=== PATIENT | male | born 2000 | race Caucasian/White ===

== ENCOUNTER 2018-03-29 22:10 | Inpatient (IN) | payer BC ==
[2018-03-29] MEDS ORDERED: SODIUM CHLORIDE 1,000 ML IV STA (23:23)
--- NOTE | 2018-03-29 23:23 | PDOC ---
History of Present Illness - General Chief Complaint: Pain Stated Complaint: PCP SENT Time Seen by Provider: 03/29/18 23:19 History Source: Patient - History of Present Illness Initial Comments: 03/30/18 02:12 17-year-old male with right lower quadrant pain, nausea vomiting for one day. Patient was seen in [facility] urgent care, noted to have WBC count of 17,000 and was referred to the ER for further evaluation of right lower quadrant pain. Past History - Past Medical History Allergies/Adverse Reactions: Allergies Allergy/AdvReac Type Severity Reaction Status Date / Time No Known Allergies Allergy Verified 03/29/18 22:13 Home Medications: Ambulatory Orders NK [No Known Home Medication] 03/30/18 COPD: No - Immunization History Immunization Up to Date: Yes - Suicide/Smoking/Psychosocial Hx Smoking History: Never smoked Review of Systems - Review of Systems Able to Perform ROS?: Yes Is the patient limited Maltese proficient: No Constitutional: No: Symptoms Reported, See HPI, Chills, Diaphoresis, Fever, Loss of Appetite, Malaise, Night Sweats, Weakness, Weight Stable, Unintentional Wgt. Loss, Unexplained wgt Loss, Other ABD/GI: Yes: Nausea, Vomiting, Abdominal cramping. No: Symptoms Reported, See HPI, Abdominal Distended, Abd. Pain w/ defecation, Blood Streaked Bowels, Constipated, Diarrhea, Difficulty Swallowing, Poor Appetite, Poor Fluid Intake, Rectal Bleeding, Indigestion, Tarry Stools, Other : No: Symptoms Reported, See HPI, Burning, Dysuria, Discharge, Frequency, Flank Pain, Hematuria, Incontinence, Pain, Urgency, Testicular Mass, Testicular Swelling, Lesions, Testicular Pain, Other *Physical Exam - Vital Signs Last Vital Signs Temp Pulse Resp BP Pulse Ox 98.2 F 80 18 118/62 98 03/29/18 22:13 03/29/18 22:13 03/29/18 22:13 03/29/18 22:13 03/29/18 22:13 - Physical Exam General Appearance: Yes: Appropriately Dressed Gastrointestinal/Abdominal: positive: Normal Bowel Sounds, Tender (RLQ), Soft Male Genitalia: positive: normal genitalia, normal prostate. negative: testicular tenderness Musculoskeletal: positive: Normal Inspection. negative: CVA Tenderness Extremity: positive: Normal Capillary Refill, Normal Inspection, Normal Range of Motion Integumentary: positive: Normal Color, Dry, Warm Neurologic: positive: Fully Oriented, Alert, Normal Mood/Affect ED Treatment Course - LABORATORY CBC & Chemistry Diagram: 03/29/18 23:40 03/29/18 23:40 Progress Note - Progress Note Progress Note: Acute appendicitis Dr. Sinha is made aware. patient to be admitted under hospitalist for further management of care. Medical Decision Making - Medical Decision Making 03/30/18 03:[address] patient signed out to Dr[address] Resendez *DC/Admit/Observation/Transfer Diagnosis at time of Disposition: Abdominal pain Qualifiers: Abdominal location: right lower quadrant Qualified Code(s): R10.31 - Right lower quadrant pain Acute appendicitis Qualifiers: Acute appendicitis type: unspecified acute appendicitis type Qualified Code(s) : K35.80 - Unspecified acute appendicitis - Discharge Dispostion Decision to Admit order: Yes - Referrals - Patient Instructions - Post Discharge Activity
[2018-03-29] MEDS ORDERED: ONDANSETRON 4 MG/2 ML VIAL IVPUSH ONE (23:30)
[2018-03-29] MEDS ORDERED: ONDANSETRON 4 MG/2 ML VIAL ONE (23:40)
[2018-03-29 23:56] LABS: BASO % 0.3 % (0-2.0); EOS % 0.1 % (0-4.5); HEMATOCRIT 38.9 % (35.4-49); HEMOGLOBIN 12.8 GM/dL (11.7-16.9); LYMPH % 12.2 % (8-40); MCH 29.3 pg (25.7-33.7); MEAN CELL VOLUME 88.9 fl (80-96); MEAN PLT VOLUME 7.9 fl (7.5-11.1); MONO % 7.6 % (3.8-10.2); NEUT % 79.8 % (42.8-82.8); PLATELET COUNT 283 K/MM3 (134-434); RBC 4.38 M/mm3 (4.00-5.60); RDW 14.4 % (11.9-15.9); WHITE BLOOD COUNT 15.5 K/mm3 (4.0-10.0)
[2018-03-30 00:50] LABS: ALBUMIN 4.1 g/dl (3.4-5.0); ALK PHOS 80 U/L (45-117); ANION GAP 9 (8-16); BILIRUBIN,TOTAL 1.4 mg/dL (0.2-1.0); BLOOD UREA NITROGEN 20 mg/dL (7-18); CALCIUM 8.7 mg/dL (8.5-10.1); CHLORIDE 106 mmol/L (98-107); CO2 24 mmol/L (21-32); CREATININE 0.9 mg/dL (0.7-1.3); GLUCOSE,RANDOM 93 mg/dL (74-106); LIPASE 48 U/L (73-393); POTASSIUM 4.2 mmol/L (3.5-5.1); SGOT/AST 15 U/L (15-37); SGPT/ALT 21 U/L (12-78); SODIUM 139 mmol/L (136-145)
[2018-03-30 01:57] LABS: URINE APPEARANCE CLEAR; URINE BILIRUBIN NEGATIVE (<2.0 mg/dL); URINE COLOR COLORLESS; URINE GLUCOSE (UA) NEGATIVE (NEGATIVE); URINE KETONE TRACE (NEGATIVE); URINE LEUK ESTERASE NEGATIVE (NEGATIVE); URINE NITRITE NEGATIVE (NEGATIVE); URINE PROTEIN NEGATIVE (NEGATIVE); URINE UROBILINOGEN NEGATIVE mg/dL (0.2-1.0)
[2018-03-30] MEDS ORDERED: SODIUM CHLORIDE 1,000 ML IV SCH ×2 (02:30→04:30)
[2018-03-30] MEDS ORDERED: PIPERACILLIN/TAZOB 3.375 GM 3.375 GM in DEXTROSE 5%-WATER - 50 ML IVPB ONE ×2 (02:43→09:00)
[2018-03-30] MEDS ORDERED: PIPERACILLIN/TAZOB 3.375 GM 3.375 GM/50 ML BAG IVPB ONE ×2 (03:06→04:09)
--- NOTE | 2018-03-30 03:36 | HP ---
CHIEF COMPLAINT: abdominal pain PCP: none HISTORY OF PRESENT ILLNESS: 17 yr old man with no significant past medical history referred by [facility] urgent care center for wbc of 17,000 this evening. midday at school he had lunch, developed 4/10 nonpositional/nonradiating RLQ pain. He had 3-4 episodes of emesis consisting of food, abdominal pain improved after vomiting. He went home and continued to have the pain, his mom brought him to the urgent care center to be evaluated. He was in his usual state of health morning and Monday. denies fevers, hematochezia, chest pain, sob. ER course was notable for: (1)abd/pelvic CT with cont shows mildly inflammed/mildly dilated appendix (2) (3) Recent Travel:none PAST MEDICAL HISTORY: none PAST SURGICAL HISTORY: none Social History: came from [facility] 7yrs ago, plays soccer, in school Smoking: denies Alcohol:denies Drugs: denies Family History: mother denies family hx of HTN, DM, cancers Allergies No Known Allergies Allergy (Verified 03/29/18 22:13) HOME MEDICATIONS: Home Medications Medication Instructions Recorded NK [No Known Home Medication] 03/30/18 REVIEW OF SYSTEMS CONSTITUTIONAL: Absent: fever, chills, diaphoresis, generalized weakness, malaise, loss of appetite, weight change HEENT: Absent: rhinorrhea, nasal congestion, throat pain, throat swelling, difficulty swallowing, mouth swelling, ear pain, eye pain, visual changes CARDIOVASCULAR: Absent: chest pain, syncope, palpitations, irregular heart rate, lightheadedness , peripheral edema RESPIRATORY: Absent: cough, shortness of breath, dyspnea with exertion, orthopnea, wheezing, stridor, hemoptysis GASTROINTESTINAL: Present:abdominal pain, vomiting, Absent: , abdominal distension, nausea, diarrhea, constipation, melena, hematochezia GENITOURINARY: Absent: dysuria, frequency, urgency, hesitancy, hematuria, flank pain, genital pain MUSCULOSKELETAL: Absent: myalgia, arthralgia, joint swelling, back pain, neck pain SKIN: Absent: rash, itching, pallor HEMATOLOGIC/IMMUNOLOGIC: Absent: easy bleeding, easy bruising, lymphadenopathy, frequent infections ENDOCRINE: Absent: unexplained weight gain, unexplained weight loss, heat intolerance, cold intolerance NEUROLOGIC: Absent: headache, focal weakness or paresthesias, dizziness, unsteady gait, seizure, mental status changes, bladder or bowel incontinence PHYSICAL EXAMINATION Vital Signs - 24 hr 03/29/18 22:13 Temperature 98.2 F Pulse Rate 80 Respiratory 18 Rate Blood Pressure 118/62 O2 Sat by Pulse 98 Oximetry (%) GENERAL: Awake, alert, and fully oriented, in no acute distress. HEAD: Normal with no signs of trauma. EYES: Pupils equal, round and reactive to light, extraocular movements intact, sclera anicteric, conjunctiva clear. No lid lag. EARS, NOSE, THROAT: Ears normal, nares patent, oropharynx clear without exudates. Moist mucous membranes. NECK: Normal range of motion, supple without lymphadenopathy, JVD, or masses. LUNGS: Breath sounds equal, clear to auscultation bilaterally. No wheezes, and no crackles. No accessory muscle use. HEART: Regular rate and rhythm, normal S1 and S2 without murmur, rub or gallop. ABDOMEN: Soft, not distended, normoactive bowel sounds, no guarding, no rebound , no masses. No hepatomegaly or splenomegaly. tender to deep palpation in RLQ , no pereira's, no rovsings, no obturator's MUSCULOSKELETAL: Normal range of motion at all joints. No bony deformities or tenderness. No CVA tenderness. UPPER EXTREMITIES: 2+ radial pulses, warm, well-perfused. No cyanosis. No clubbing. No peripheral edema. LOWER EXTREMITIES: 2+ DP pulses, warm, well-perfused. No calf tenderness. No peripheral edema. NEUROLOGICAL: Cranial nerves II-XII intact. Normal speech. facial symmetry PSYCHIATRIC: Cooperative. Good eye contact. Appropriate mood and affect. SKIN: Warm, dry, normal turgor, no rashes or lesions noted, normal capillary refill. Laboratory Results - last 24 hr 03/29/18 03/29/18 03/30/18 23:40 23:40 00:43 WBC 15.5 H RBC 4.38 Hgb 12.8 Hct 38.9 MCV 88.9 MCH 29.3 MCHC 33.0 RDW 14.4 Plt Count 283 MPV 7.9 Neutrophils % 79.8 Lymphocytes % 12.2 Monocytes % 7.6 Eosinophils % 0.1 Basophils % 0.3 Nucleated RBC % 0 Sodium 139 Potassium 4.2 Chloride 106 Carbon Dioxide 24 Anion Gap 9 BUN 20 H Creatinine 0.9 Creat Clearance w eGFR > 60 Random Glucose 93 Calcium 8.7 Total Bilirubin 1.4 H AST 15 ALT 21 Alkaline Phosphatase 80 Total Protein 7.0 Albumin 4.1 Lipase 48 L Urine Color Colorless Urine Appearance Clear Urine pH 6.0 Ur Specific [place] 1.002 Urine Protein Negative Urine Glucose (UA) Negative Urine Ketones Trace H Urine Blood Negative Urine Nitrite Negative Urine Bilirubin Negative Urine Urobilinogen Negative Ur Leukocyte Esterase Negative ASSESSMENT/PLAN: 17 yr old man with no significant past medical history who presents with RLQ pain found to have acute appendicitis on CT scan. #Acute appendicitis - leucocytosis, check lactic acid - preop: type and screen/coags - ED consulted Dr. Sinha, is aware of patient Visit type - Emergency Visit Emergency Visit: Yes ED Registration Date: 03/30/18 Care time: The patient presented to the Emergency Department on the above date and was hospitalized for further evaluation of their emergent condition. - New Patient This patient is new to me today: Yes Date on this admission: 03/30/18 - Critical Care Critical Care patient: No Hospitalist Screening - Colonoscopy Questionnaire Colonoscopy Questionnaire: Colonoscopy Questionnaire - Patient: 50 - 75 years old and never had a screening colonoscopy: Unknown History of colon or rectal polyps, or CA: Unknown History of IBD, Crohn's disease or UC: Unknown History of abdominal radiation therapy as a child: Unknown - Relative: 1 with colon or rectal CA, or polyps at age 60 or younger: Unknown Colon or rectal CA diagnosed at age 45 or younger: Unknown Multiple relatives with colon or rectal CA: Unknown - Outcome: Screening Result: Negative Screen
[2018-03-30] MEDS ORDERED: ONDANSETRON 4 MG/2 ML VIAL IVPUSH PRN ×2 (04:17→22:50)
--- NOTE | 2018-03-30 05:37 | PN ---
Teaching Attending Note Name of Resident: Nancy Mckeon ATTENDING PHYSICIAN STATEMENT I saw and evaluated the patient. Chart, data, imaging reviewed. I reviewed the resident's note and discussed the case with the resident. I agree with the resident's findings and plan as documented. SUBJECTIVE: 17 yr old man with no significant past medical history referred by [facility] urgent care center for wbc of 17k. Pt developed abdominal pain, nausea and vomiting on 03/29 in the afternoon. First time having these symptoms. Denied trauma. Does not take any medications at home. OBJECTIVE: Last Vital Signs Temp Pulse Resp BP Pulse Ox 98.2 F 80 18 118/62 98 03/29/18 22:13 03/29/18 22:13 03/29/18 22:13 03/29/18 22:13 03/29/18 22:13 general- nad, aaox3 heent - at, nc, moist oral mucosa neck - supple, no jvd cv-s1+s2+rrr chest -cta b/l abdomen -bs+ skin -no rashes Abnormal Lab Results 03/29/18 03/29/18 03/30/18 23:40 23:40 00:43 WBC 15.5 H BUN 20 H Total Bilirubin 1.4 H Lipase 48 L Urine Ketones Trace H ekg -nsr abd/pelvic CT with cont reviewed- shows mildly inflamed/mildly dilated appendix ASSESSMENT AND PLAN: #17yo man with acute appendicitis with no abscess formation. Leukocytosis. Clinically stable for med/surg. -admit to med/surg -IV fluid hydration -NPO -zofran prn -morphine 2 mg IV -surgery consult -zosyn 3.375g IV q6hrs -heparin sc for dvt ppx
[2018-03-30 05:39] LABS: INR 1.12 (0.82-1.09); PROTHROMBIN TIME (PATIENT) 12.7 SEC (9.7-13.0)
[2018-03-30 05:42] LABS: ACTIVATED PTT 31.4 SECONDS (26.9-34.4)
[2018-03-30 06:03] VITALS: BMI 27.9
--- NOTE | 2018-03-30 08:10 | CON.ID ---
Consult Consult Specialty:: infectious disease Referred by:: hospitalist service Reason for Consultation:: appendicitis - History of Present Illness Chief Complaint: abdominal pain RLQ with vomiting History of Present Illness: 17 year old man otherwise healthy- no meds- presented to [facility] yesterday with acute RLQ pain and vomiting no fever sent to ED for further evaluation no prior hospitalizations no meds - History Source History Provided By: Patient, Family Member Limitations to Obtaining History: No Limitations - Past Medical History Additional Medical History: Left arm fracture - Alcohol/Substance Use Hx Alcohol Use: No History of Substance Use: reports: None - Smoking History Smoking history: Never smoked - Social History Usual Living Arrangement: With Parent ADL: Independent Occupation: student Place of : Other ([employer]) Came to [place]year[place] 2009 History of Recent Travel: No Home Medications - Allergies Allergies/Adverse Reactions: Allergies Allergy/AdvReac Type Severity Reaction Status Date / Time pineapple Allergy Mild Hives Verified 03/30/18 03:36 - Home Medications Home Medications: Ambulatory Orders NK [No Known Home Medication] 03/30/18 Family Disease History - Family Disease History Family History: Denies Review of Systems - Review of Systems Constitutional: reports: No Symptoms. denies: Chills, Fever Eyes: reports: No Symptoms HENT: reports: No Symptoms Neck: reports: No Symptoms Cardiovascular: reports: No Symptoms. denies: Chest Pain Respiratory: reports: No Symptoms. denies: Cough, SOB Gastrointestinal: reports: Abdominal Pain, Vomiting. denies: Constipation, Diarrhea, Rectal Bleeding, Vomiting Blood Genitourinary: reports: No Symptoms Musculoskeletal: reports: No Symptoms Integumentary: reports: No Symptoms Neurological: reports: No Symptoms Physical Exam Vital Signs: Vital Signs Temperature 97.2 F L 03/30/18 07:29 Pulse Rate 97 H 03/30/18 07:29 Respiratory Rate 18 03/30/18 06:22 Blood Pressure 96/59 03/30/18 07:29 O2 Sat by Pulse Oximetry (%) 99 03/30/18 07:29 Constitutional: Yes: Well Nourished, No Distress, Calm Eyes: Yes: Conjunctiva Clear HENT: Yes: Atraumatic, Normocephalic Neck: Yes: Supple, Trachea Midline Cardiovascular: Yes: Regular Rate and Rhythm Respiratory: Yes: Regular, CTA Bilaterally Gastrointestinal: Yes: Normal Bowel Sounds, Soft, Tenderness (RLQ) ...Rectal Exam: Yes: Deferred Renal/: Yes: WNL Musculoskeletal: Yes: WNL Extremities: Yes: WNL Edema: No Neurological: Yes: Alert, Oriented Labs: CBC, BMP 03/29/18 23:40 03/29/18 23:40 Imaging - Results Cat Scan: Pending Problem List - Problems (1) Acute appendicitis Code(s): K35.80 - UNSPECIFIED ACUTE APPENDICITIS Qualifiers: Acute appendicitis type: unspecified acute appendicitis type Qualified Code (s): K35.80 - Unspecified acute appendicitis Assessment/Plan For OR today d/w dr erna bhatti zosylarry perioperatively d/w patient and mother at bedside
[2018-03-30] MEDS ORDERED: ceFAZolin SODIUM 1 GM VIAL IVPB ONE (08:45)
[2018-03-30] MEDS ORDERED: DEXTROSE 5%-NORMAL SALINE 1,000 ML IV SCH (08:45)
[2018-03-30] MEDS ORDERED: PIPERACILLIN/TAZOB 3.375 GM 3.375 GM in DEXTROSE 5%-WATER - 50 ML IVPB SCH ×2 (09:00→15:00)
[2018-03-30 10:11] LABS: BASO % 0.2 % (0-2.0); EOS % 0.7 % (0-4.5); HEMATOCRIT 36.3 % (35.4-49); HEMOGLOBIN 12.2 GM/dL (11.7-16.9); LYMPH % 20.1 % (8-40); MCH 29.7 pg (25.7-33.7); MCHC 33.5 g/dl (32.0-35.9); MEAN CELL VOLUME 88.4 fl (80-96); MONO % 8.9 % (3.8-10.2); NEUT % 70.1 % (42.8-82.8); PLATELET COUNT 268 K/MM3 (134-434); RBC 4.11 M/mm3 (4.00-5.60); RDW 14.2 % (11.9-15.9); WHITE BLOOD COUNT 8.2 K/mm3 (4.0-10.0)
[2018-03-30 10:31] LABS: ALBUMIN 3.4 g/dl (3.4-5.0); ANION GAP 6 (8-16); BILIRUBIN,TOTAL 2.1 mg/dL (0.2-1.0); BLOOD UREA NITROGEN 12 mg/dL (7-18); CALCIUM 7.9 mg/dL (8.5-10.1); CHLORIDE 109 mmol/L (98-107); CO2 26 mmol/L (21-32); CREATININE 0.9 mg/dL (0.7-1.3); GLUCOSE,RANDOM 82 mg/dL (74-106); SGOT/AST 11 U/L (15-37); SGPT/ALT 17 U/L (12-78); SODIUM 141 mmol/L (136-145)
[2018-03-30 10:32] LABS: ALK PHOS 72 U/L (45-117)
--- NOTE | 2018-03-30 14:27 | PN ---
Teaching Attending Note Name of Resident: Jewel Hathaway ATTENDING PHYSICIAN STATEMENT I saw and evaluated the patient. I reviewed the resident's note and discussed the case with the resident. I agree with the resident's findings and plan as documented with exceptions below. SUBJECTIVE: Patient seen and examined. right sided abdominal pain. No nausea, vomiting, fevers, chills or new symptoms. Feels a little better. OBJECTIVE: Vital Signs Period Temp Pulse Resp BP Sys/Vasquez Pulse Ox Last 24 Hr 97.2 F-98.8 F 63-97 16-18 96-162/59-72 97-100 Intake & Output 03/27/18 03/28/18 03/29/18 03/30/18 23:59 23:59 23:59 23:59 Intake Total 750 Balance 750 Weight 163 lb 163 lb General: lying in bed in no acute distress Abdomen:soft, ND, RLQ/RMQ tenderness, no voluntary or involuntary guarding or rigidity, positive bowel sounds Home Medication List Medication Instructions Recorded Confirmed Type NK [No Known Home Medication] 03/30/18 03/30/18 History Active Medications Generic Name Dose Route Start Last Admin Trade Name Freq PRN Reason Stop Dose Admin Heparin Sodium (Porcine) 5,000 unit 03/30/18 22:00 Heparin - SQ TID CLIFFORD Piperacillin Sod/Tazobactam 50 mls @ 100 mls/hr 03/30/18 15:00 Sod 3.375 gm/ Dextrose IVPB Q6H-IV CLIFFORD Protocol Dextrose/Sodium Chloride 1,000 mls @ 125 mls/hr 03/30/18 08:45 03/30/18 13:02 D5-Ns - IV 125 mls/hr ASDIR CLIFFORD Administration Ondansetron HCl 4 mg 03/30/18 04:17 Zofran Injection IVPUSH Q6H PRN NAUSEA Laboratory Results - last 24 hr 03/29/18 03/29/18 03/30/18 23:40 23:40 00:43 WBC 15.5 H RBC 4.38 Hgb 12.8 Hct 38.9 MCV 88.9 MCH 29.3 MCHC 33.0 RDW 14.4 Plt Count 283 MPV 7.9 Neutrophils % 79.8 Lymphocytes % 12.2 Monocytes % 7.6 Eosinophils % 0.1 Basophils % 0.3 Nucleated RBC % 0 PT with INR INR PTT (Actin FS) Sodium 139 Potassium 4.2 Chloride 106 Carbon Dioxide 24 Anion Gap 9 BUN 20 H Creatinine 0.9 Creat Clearance w eGFR > 60 Random Glucose 93 Lactic Acid Calcium 8.7 Total Bilirubin 1.4 H AST 15 ALT 21 Alkaline Phosphatase 80 Total Protein 7.0 Albumin 4.1 Lipase 48 L Urine Color Colorless Urine Appearance Clear Urine pH 6.0 Ur Specific [place] 1.002 Urine Protein Negative Urine Glucose (UA) Negative Urine Ketones Trace H Urine Blood Negative Urine Nitrite Negative Urine Bilirubin Negative Urine Urobilinogen Negative Ur Leukocyte Esterase Negative Blood Type Antibody Screen 03/30/18 03/30/18 03/30/18 05:06 05:06 05:06 WBC RBC Hgb Hct MCV MCH MCHC RDW Plt Count MPV Neutrophils % Lymphocytes % Monocytes % Eosinophils % Basophils % Nucleated RBC % PT with INR 12.70 INR 1.12 PTT (Actin FS) 31.4 Sodium Potassium Chloride Carbon Dioxide Anion Gap BUN Creatinine Creat Clearance w eGFR Random Glucose Lactic Acid 1.0 Calcium Total Bilirubin AST ALT Alkaline Phosphatase Total Protein Albumin Lipase Urine Color Urine Appearance Urine pH Ur Specific [place] Urine Protein Urine Glucose (UA) Urine Ketones Urine Blood Urine Nitrite Urine Bilirubin Urine Urobilinogen Ur Leukocyte Esterase Blood Type O POSITIVE Antibody Screen Negative 03/30/18 03/30/18 09:33 09:33 WBC 8.2 D RBC 4.11 Hgb 12.2 Hct 36.3 MCV 88.4 MCH 29.7 MCHC 33.5 RDW 14.2 Plt Count 268 MPV 8.0 Neutrophils % 70.1 Lymphocytes % 20.1 D Monocytes % 8.9 Eosinophils % 0.7 D Basophils % 0.2 Nucleated RBC % 0 PT with INR INR PTT (Actin FS) Sodium 141 Potassium 4.0 Chloride 109 H Carbon Dioxide 26 Anion Gap 6 L BUN 12 D Creatinine 0.9 Creat Clearance w eGFR > 60 Random Glucose 82 Lactic Acid Calcium 7.9 L Total Bilirubin 2.1 H D AST 11 L D ALT 17 Alkaline Phosphatase 72 Total Protein 6.0 L Albumin 3.4 Lipase Urine Color Urine Appearance Urine pH Ur Specific [place] Urine Protein Urine Glucose (UA) Urine Ketones Urine Blood Urine Nitrite Urine Bilirubin Urine Urobilinogen Ur Leukocyte Esterase Blood Type Antibody Screen CT A/P results reviewed ASSESSMENT AND PLAN: 17 yom with acute uncomplicated appendicitis -Acute uncomplicated appendicitis Plan: Zosyn day 1, plan for OR today. Patient seen by Dr. Sinha. Pain control, serial exams. Dispo planning in 24 hours post surgery if no concerns. Plan discussed with patient in detail, all questions answered.
--- NOTE | 2018-03-30 15:25 | PN ---
Physical Exam: SUBJECTIVE: Patient seen and examined at bedside. Pt has no complaints at this time. Denies nausea vomiting today. No abdominal pain at this time. OBJECTIVE: Vital Signs Period Temp Pulse Resp BP Sys/Vasquez Pulse Ox Last 24 Hr 97.2 F-98.8 F 63-97 16-18 96-162/59-72 97-100 GENERAL: The patient is awake, alert, and fully oriented, in no acute distress. HEAD: Normal with no signs of trauma. EYES: sclera anicteric, conjunctiva clear. No ptosis. ENT: oropharynx clear without exudates, moist mucous membranes. NECK: Trachea midline, full range of motion, supple. LUNGS: Breath sounds equal, clear to auscultation bilaterally, no wheezes, no crackles, no accessory muscle use. HEART: Regular rate and rhythm, S1, S2 without murmur, rub or gallop. ABDOMEN: Soft, minimal TTP, nondistended, normoactive bowel sounds, no guarding , no rebound, no hepatosplenomegaly, no masses. [place] neg. EXTREMITIES: 2+ pulses, warm, well-perfused, no edema. NEUROLOGICAL: Cranial nerves II through XII grossly intact. Normal speech, gait not observed. PSYCH: Normal mood, normal affect. SKIN: Warm, dry, normal turgor, no rashes or lesions noted Laboratory Results - last 24 hr 03/29/18 03/29/18 03/30/18 23:40 23:40 00:43 WBC 15.5 H RBC 4.38 Hgb 12.8 Hct 38.9 MCV 88.9 MCH 29.3 MCHC 33.0 RDW 14.4 Plt Count 283 MPV 7.9 Neutrophils % 79.8 Lymphocytes % 12.2 Monocytes % 7.6 Eosinophils % 0.1 Basophils % 0.3 Nucleated RBC % 0 PT with INR INR PTT (Actin FS) Sodium 139 Potassium 4.2 Chloride 106 Carbon Dioxide 24 Anion Gap 9 BUN 20 H Creatinine 0.9 Creat Clearance w eGFR > 60 Random Glucose 93 Lactic Acid Calcium 8.7 Total Bilirubin 1.4 H AST 15 ALT 21 Alkaline Phosphatase 80 Total Protein 7.0 Albumin 4.1 Lipase 48 L Urine Color Colorless Urine Appearance Clear Urine pH 6.0 Ur Specific [place] 1.002 Urine Protein Negative Urine Glucose (UA) Negative Urine Ketones Trace H Urine Blood Negative Urine Nitrite Negative Urine Bilirubin Negative Urine Urobilinogen Negative Ur Leukocyte Esterase Negative Blood Type Antibody Screen 03/30/18 03/30/18 03/30/18 05:06 05:06 05:06 WBC RBC Hgb Hct MCV MCH MCHC RDW Plt Count MPV Neutrophils % Lymphocytes % Monocytes % Eosinophils % Basophils % Nucleated RBC % PT with INR 12.70 INR 1.12 PTT (Actin FS) 31.4 Sodium Potassium Chloride Carbon Dioxide Anion Gap BUN Creatinine Creat Clearance w eGFR Random Glucose Lactic Acid 1.0 Calcium Total Bilirubin AST ALT Alkaline Phosphatase Total Protein Albumin Lipase Urine Color Urine Appearance Urine pH Ur Specific [place] Urine Protein Urine Glucose (UA) Urine Ketones Urine Blood Urine Nitrite Urine Bilirubin Urine Urobilinogen Ur Leukocyte Esterase Blood Type O POSITIVE Antibody Screen Negative 03/30/18 03/30/18 09:33 09:33 WBC 8.2 D RBC 4.11 Hgb 12.2 Hct 36.3 MCV 88.4 MCH 29.7 MCHC 33.5 RDW 14.2 Plt Count 268 MPV 8.0 Neutrophils % 70.1 Lymphocytes % 20.1 D Monocytes % 8.9 Eosinophils % 0.7 D Basophils % 0.2 Nucleated RBC % 0 PT with INR INR PTT (Actin FS) Sodium 141 Potassium 4.0 Chloride 109 H Carbon Dioxide 26 Anion Gap 6 L BUN 12 D Creatinine 0.9 Creat Clearance w eGFR > 60 Random Glucose 82 Lactic Acid Calcium 7.9 L Total Bilirubin 2.1 H D AST 11 L D ALT 17 Alkaline Phosphatase 72 Total Protein 6.0 L Albumin 3.4 Lipase Urine Color Urine Appearance Urine pH Ur Specific [place] Urine Protein Urine Glucose (UA) Urine Ketones Urine Blood Urine Nitrite Urine Bilirubin Urine Urobilinogen Ur Leukocyte Esterase Blood Type Antibody Screen Active Medications Generic Name Dose Route Start Last Admin Trade Name Freq PRN Reason Stop Dose Admin Enoxaparin Sodium 40 mg 03/31/18 10:00 Lovenox - SQ DAILY CLIFFORD Piperacillin Sod/Tazobactam 50 mls @ 100 mls/hr 03/30/18 15:00 Sod 3.375 gm/ Dextrose IVPB Q6H-IV CLIFFORD Protocol Dextrose/Sodium Chloride 1,000 mls @ 125 mls/hr 03/30/18 08:45 03/30/18 13:02 D5-Ns - IV 125 mls/hr ASDIR CLIFFORD Administration Ondansetron HCl 4 mg 03/30/18 04:17 Zofran Injection IVPUSH Q6H PRN NAUSEA ASSESSMENT/PLAN: 17 yr old man with no significant past medical history who presents with RLQ pain found to have acute appendicitis on CT scan. #Acute Appendicitis - leucocytosis, RLQ pain and TTP - ED consulted Dr. Sinha, is aware of patient -ID consulted. Pt on Zosyn -For OR today #FEN -D5Ns -lytes wnl -NPO pending surgery #PPx #Dispo -Admit for Med/Surg Jewel Hathaway MD PGY-1 IM Visit type - Emergency Visit Emergency Visit: Yes ED Registration Date: 03/30/18 Care time: The patient presented to the Emergency Department on the above date and was hospitalized for further evaluation of their emergent condition. - New Patient This patient is new to me today: Yes Date on this admission: 03/30/18 - Critical Care Critical Care patient: No - Discharge Referral Referred to [facility] No
[2018-03-30] MEDS ORDERED: DEXTROSE 5%-WATER - 50 ML IVPB ONE (15:42)
[2018-03-30] MEDS ORDERED: PIPERACILLIN/TAZOBACTAM 3.375 GM VIAL IVPB ONE (15:42)
[2018-03-30] MEDS ORDERED: ROCURONIUM BROMIDE 50 MG/5 ML VIAL ONE (17:10)
[2018-03-30] MEDS ORDERED: MIDAZOLAM HCL 2 MG/2 ML SINGLE DOSE VIAL ONE (17:10)
[2018-03-30] MEDS ORDERED: PROPOFOL 20 ML ONE (17:10)
[2018-03-30] MEDS ORDERED: LIDOCAINE HCL/PF 2% SDV 5ML VIAL ONE (17:12)
[2018-03-30] MEDS ORDERED: BUPIVACAINE HCL/PF 0.5% (5MG/ML) 10 ML VIAL ONE (18:02)
--- NOTE | 2018-03-30 18:30 | CONSULT ---
Consult Consult Specialty:: Surgery Referred by:: Hospitalist Reason for Consultation:: Abdominal pain - History of Present Illness Chief Complaint: 17 year old man c/o right sided abdominal pain since yestrday afternoon. he is nauseous but has no vomiting. No similar symptomd in the past. - History Source History Provided By: Patient Limitations to Obtaining History: No Limitations - Past Medical History Additional Medical History: Left arm fracture - Alcohol/Substance Use Hx Alcohol Use: No History of Substance Use: reports: None - Smoking History Smoking history: Never smoked - Social History Usual Living Arrangement: With Parent ADL: Independent Occupation: student History of Recent Travel: No Home Medications - Allergies Allergies/Adverse Reactions: Allergies Allergy/AdvReac Type Severity Reaction Status Date / Time pineapple Allergy Mild Hives Verified 03/30/18 03:36 - Home Medications Home Medications: Ambulatory Orders NK [No Known Home Medication] 03/30/18 Review of Systems - Review of Systems Gastrointestinal: reports: Abdominal Pain Physical Exam Vital Signs: Vital Signs Temperature 98.4 F 03/30/18 12:51 Pulse Rate 63 03/30/18 12:51 Respiratory Rate 18 03/30/18 12:51 Blood Pressure 117/69 03/30/18 12:51 O2 Sat by Pulse Oximetry (%) 97 03/30/18 09:31 Gastrointestinal: Yes: Other (Tender in right lower quadrant of abdomen. Minimal guarding.) Labs: CBC, BMP 03/30/18 09:33 03/30/18 09:33 Imaging - Results Cat Scan: Report Reviewed, Image Reviewed (Acute appendicistis) Problem List - Problems (1) Abdominal pain, acute, right lower quadrant Code(s): R10.31 - RIGHT LOWER QUADRANT PAIN (2) Acute appendicitis Code(s): K35.80 - UNSPECIFIED ACUTE APPENDICITIS Qualifiers: Acute appendicitis type: unspecified acute appendicitis type Qualified Code (s): K35.80 - Unspecified acute appendicitis Assessment/Plan Acute appendicistis Plan : hydrate, antibiotics, appendectomy, laparoscopic , possible open. Patient and his family were informed of the findings and management. Consent obtained.
[2018-03-30] MEDS ORDERED: DEXAMETHASONE SOD PHOSPHATE 4 MG/1 ML VIAL ONE (20:32)
[2018-03-30] MEDS ORDERED: KETOROLAC TROMETHAMINE 30 MG/1 ML VIAL ONE (20:34)
[2018-03-30] MEDS ORDERED: SEVOFLURANE 250 ML BTL ONE (20:39)
[2018-03-30] MEDS ORDERED: ceFAZolin SODIUM 1 GM VIAL ONE (20:44)
[2018-03-30] MEDS ORDERED: BUPIVACAINE HCL/PF 0.5% (5MG/ML) 10 ML VIAL IJ ONE (21:00)
--- NOTE | 2018-03-30 21:58 | OP ---
Operative Note - Note: Operative Date: 03/30/18 Pre-Operative Diagnosis: Acute appendicitis. Operation: Laparoscopic appendectomy. Findings: Acute appendicitis. Post-Operative Diagnosis: Same as Pre-op Surgeon: Paloma Sinha Anesthesia: General Specimens Removed: Appendix. Estimated Blood Loss (mls): 5 Operative Report Dictated: Yes
[2018-03-30] MEDS ORDERED: HEPARIN NA (PORCINE) 5,000 UNITS/ML 1ML VIAL SQ SCH (22:00)
[2018-03-30] MEDS ORDERED: LACTATED RINGERS SOLUTION 1,000 ML IV SCH (22:15)
[2018-03-30] MEDS: DEXTROSE 5%-NORMAL SALINE 1,000 ML IV SCH (23:37)
[2018-03-31] MEDS: DEXTROSE 5%-NORMAL SALINE 1,000 ML IV SCH (06:19)
[2018-03-31] MEDS ORDERED: PIPERACILLIN/TAZOB 3.375 GM 3.375 GM in DEXTROSE 5%-WATER - 50 ML IVPB ONE (08:00)
[2018-03-31 08:08] LABS: HEMATOCRIT 38.8 % (35.4-49); HEMOGLOBIN 13.2 GM/dL (11.7-16.9); LYMPH % 8.1 % (8-40); MCH 29.9 pg (25.7-33.7); MCHC 34.1 g/dl (32.0-35.9); MEAN CELL VOLUME 87.7 fl (80-96); MEAN PLT VOLUME 7.9 fl (7.5-11.1); MONO % 2.4 % (3.8-10.2); NEUT % 89.5 % (42.8-82.8); PLATELET COUNT 288 K/MM3 (134-434); RBC 4.43 M/mm3 (4.00-5.60); RDW 14.2 % (11.9-15.9)
[2018-03-31 08:14] VITALS: PULSE 80; TEMP 98.6
[2018-03-31 08:40] LABS: CALCIUM 8.3 mg/dL (8.5-10.1); CHLORIDE 108 mmol/L (98-107); POTASSIUM 4.2 mmol/L (3.5-5.1); SODIUM 142 mmol/L (136-145)
[2018-03-31 08:46] LABS: ALBUMIN 3.4 g/dl (3.4-5.0); ALK PHOS 75 U/L (45-117); ANION GAP 10 (8-16); BILIRUBIN,TOTAL 1.2 mg/dL (0.2-1.0); BLOOD UREA NITROGEN 6 mg/dL (7-18); CO2 24 mmol/L (21-32); CREATININE 0.8 mg/dL (0.7-1.3); GLUCOSE,RANDOM 139 mg/dL (74-106); SGOT/AST 13 U/L (15-37); SGPT/ALT 20 U/L (12-78); TOT PROT 6.3 g/dl (6.4-8.2)
--- NOTE | 2018-03-31 09:03 | PN ---
Teaching Attending Note Name of Resident: Bhanu Bagley ATTENDING PHYSICIAN STATEMENT I saw and evaluated the patient. I reviewed the resident's note and discussed the case with the resident. I agree with the resident's findings and plan as documented with exceptions below. SUBJECTIVE: Patient seen and examined. doing well, just finished breakfast, no nausea, vomiting or pain. OBJECTIVE: Vital Signs Period Temp Pulse Resp BP Sys/Vasquez Pulse Ox Last 24 Hr 97.9 F-98.7 F 63-83 14-78 111-162/59-76 97-100 Intake & Output 03/28/18 03/29/18 03/30/18 03/31/18 23:59 23:59 23:59 23:59 Intake Total 2412 875 Output Total 305 Balance 2107 875 Weight 163 lb 163 lb General: sitting in bed in no acute distress Abdomen:soft, mild tenderness right sided abdomen (reports more wanting to go to 'bathroom' than tenderness), no voluntary or involuntary guarding or rigidity , non distended. Extremities: no edema Home Medication List Medication Instructions Recorded Confirmed Type NK [No Known Home Medication] 03/30/18 03/30/18 History Active Medications Generic Name Dose Route Start Last Admin Trade Name Freq PRN Reason Stop Dose Admin Enoxaparin Sodium 40 mg 03/31/18 10:00 Lovenox - SQ DAILY CLIFFORD Dextrose/Sodium Chloride 1,000 mls @ 125 mls/hr 03/30/18 22:50 03/31/18 06:19 D5-Ns - IV 125 mls/hr ASDIR CLIFFORD Administration Ondansetron HCl 4 mg 03/30/18 22:50 Zofran Injection IVPUSH Q6H PRN NAUSEA Laboratory Results - last 24 hr 03/30/18 03/30/18 03/31/18 09:33 09:33 07:45 WBC 8.2 D 7.0 RBC 4.11 4.43 Hgb 12.2 13.2 Hct 36.3 38.8 MCV 88.4 87.7 MCH 29.7 29.9 MCHC 33.5 34.1 RDW 14.2 14.2 Plt Count 268 288 MPV 8.0 7.9 Neutrophils % 70.1 89.5 H D Lymphocytes % 20.1 D 8.1 D Monocytes % 8.9 2.4 L Eosinophils % 0.7 D 0.0 D Basophils % 0.2 0.0 Nucleated RBC % 0 0 Sodium 141 Potassium 4.0 Chloride 109 H Carbon Dioxide 26 Anion Gap 6 L BUN 12 D Creatinine 0.9 Creat Clearance w eGFR > 60 Random Glucose 82 Calcium 7.9 L Total Bilirubin 2.1 H D AST 11 L D ALT 17 Alkaline Phosphatase 72 Total Protein 6.0 L Albumin 3.4 03/31/18 07:45 WBC RBC Hgb Hct MCV MCH MCHC RDW Plt Count MPV Neutrophils % Lymphocytes % Monocytes % Eosinophils % Basophils % Nucleated RBC % Sodium 142 Potassium 4.2 Chloride 108 H Carbon Dioxide 24 Anion Gap 10 BUN 6 L D Creatinine 0.8 Creat Clearance w eGFR > 60 Random Glucose 139 H D Calcium 8.3 L Total Bilirubin 1.2 H D AST 13 L ALT 20 Alkaline Phosphatase 75 Total Protein 6.3 L Albumin 3.4 ASSESSMENT AND PLAN: 17 yom with acute uncomplicated appendicitis -Acute uncomplicated appendicitis s/p Lap appendectomy 03/30 Plan: Doing well, no concerns. Tolerating PO, passing gas. Encouraged incentive spirometer. D/c home today with outpatient surgery follow up. Plan discussed with patient and family at bedside in detail, all questions answered.
[2018-03-31] MEDS ORDERED: PIPERACILLIN/TAZOBACTAM 3.375 GM VIAL IVPB ONE (09:18)
[2018-03-31] MEDS ORDERED: DEXTROSE 5%-WATER - 50 ML IVPB ONE (09:18)
[2018-03-31] MEDS ORDERED: ENOXAPARIN NA (PORCINE) 40 MG/0.4 ML DISP.SYRIN SQ SCH ×2 (10:00)
--- NOTE | 2018-03-31 10:33 | OP ---
DATE OF OPERATION: 03/30/2018 PREOPERATIVE DIAGNOSIS: Acute appendicitis. POSTOPERATIVE DIAGNOSIS: Acute appendicitis. OPERATION: Laparoscopic appendectomy. SURGEON: Tamiko Tim MD ANESTHESIA: General anesthesia. OPERATIVE DESCRIPTION: This 17-year-old man was admitted with abdominal pain in the right lower quadrant of 1 day with nausea. Patient was tender in the right lower quadrant. CT scan suggested early appendicitis. Patient was brought in for laparoscopic appendectomy after consent was obtained. Patient was given antibiotics in the ER and again supplemented in the operating room. The risks, benefits, and complications were discussed with the mother and the patient. After general anesthesia was given, José catheter was placed in the bladder to be removed right after the procedure. The abdomen was painted and draped. Time-out was called. An incision was made in the infraumbilical portion of the umbilicus. It was deepened through the skin and subcutaneous tissue and the linea alba. The peritoneal cavity was entered. Two stay sutures of 2-0 Vicryl were obtained on either side of midline as anchoring sutures. A 10-12-mm laparoscopic trocar of the Myrna type was introduced into the abdominal cavity. The abdomen was inflated with carbon dioxide at 6 L per minute with a maximum intraabdominal pressure of 15 mmHg. A 5-mm camera was introduced into the abdominal cavity. Another 5-mm trocar was inserted in the midline in the suprapubic area. This was noted entering the abdominal cavity under direct vision with the camera. A third trocar, another 5-mm, was inserted in the right upper quadrant of the abdomen, again visualized entering the abdominal cavity under direct vision of the camera. The cecum was then followed all the way to the base. The terminal ileum and cecum were normal. The appendix was long and slightly inflamed. The mesoappendix was grasped with the grasper through the right upper quadrant grasper, and the appendix was extracted cephalad and anteriorly, thus exposing the whole mesoappendix, with the Harmonic scalpel through the umbilical port, the camera being switched to the suprapubic port. The mesoappendix was divided all the way up to the base. Once the base of the appendix was identified, a 65-mm Endo REDDY was introduced through the umbilical port. This was placed against the base of the appendix. Care was taken not to be close to the terminal ileum. The Endo REDDY was fired across the base of the appendix. Appendectomy was complete. The staple line was also complete. There was no bleeding from the mesoappendix. The right lower quadrant was thoroughly irrigated with normal saline. All fluid return was clear. The terminal ileum and the rest of the internal organs were normal. The instruments were withdrawn under direct vision. The linea alba was approximated with interrupted 2-0 Vicryl sutures. There was no air leak after closure of the abdomen in the infraumbilical incision. Marcaine 0.5% was injected into the wound. The 5-mm trocar site was approximated with buried interrupted 4-0 Monocryl sutures. The skin was approximated at the umbilicus also with buried interrupted 4-0 Monocryl sutures. Estimated blood loss 5 mL. Dermabond was applied to close the skin edges. The patient tolerated the procedure well, was extubated, and sent to the recovery room in satisfactory and stable condition. Osman TIM/[id number]
[2018-03-31 12:18] VITALS: BP 105/52
--- NOTE | 2018-03-31 12:20 | DS ---
Physical Exam: SUBJECTIVE: Patient seen and examined at bedside. No overnight events. No new complaints. Pain is well controlled. Passing gas, and voiding. Tolerating diet. Denies CP,GORMAN,SoB, palpitations, nausea or vomiting. OBJECTIVE: Vital Signs Period Temp Pulse Resp BP Sys/Vasquez Pulse Ox Last 24 Hr 98.1 F-98.7 F 63-83 14-78 111-134/59-76 100-100 PHYSICAL EXAM GENERAL: AAOx3 NAD ENT: moist mucous membranes. NECK: supple. LUNGS: CTAB, no wheezes, no crackles, no accessory muscle use. HEART:RRR, S1, S2 without murmur, rub or gallop. ABDOMEN: Soft, surgical scars are C/D/I, mildly tender, nondistended, normoactive bowel sounds, no guarding, no rebound, no hepatosplenomegaly, no masses. EXTREMITIES: 2+ pulses, warm, well-perfused, no edema. LABS Laboratory Results - last 24 hr 03/31/18 03/31/18 07:45 07:45 WBC 7.0 RBC 4.43 Hgb 13.2 Hct 38.8 MCV 87.7 MCH 29.9 MCHC 34.1 RDW 14.2 Plt Count 288 MPV 7.9 Neutrophils % 89.5 H D Lymphocytes % 8.1 D Monocytes % 2.4 L Eosinophils % 0.0 D Basophils % 0.0 Nucleated RBC % 0 Sodium 142 Potassium 4.2 Chloride 108 H Carbon Dioxide 24 Anion Gap 10 BUN 6 L D Creatinine 0.8 Creat Clearance w eGFR > 60 Random Glucose 139 H D Calcium 8.3 L Total Bilirubin 1.2 H D AST 13 L ALT 20 Alkaline Phosphatase 75 Total Protein 6.3 L Albumin 3.4 IMAGING: * CT/ABDOMEN PELVIS CT WITH CONTR Right lower quadrant pain CT scan of the abdomen and pelvis following oral and intravenous contrast. Coronal and sagittal reformatted images were obtained 85 cc of Omnipaque 350 was intravenously injected Comparison: None available Visualized lung base appears unremarkable and the heart is within normal limits in size. Evaluation of the liver, spleen, pancreas, gallbladder, both adrenal glands and both kidneys appear unremarkable except for a 1 cm cyst left kidney There is no evidence of small bowel obstruction. Normal-appearing terminal ileum. Proximal portion of the appendix measuring 11 mm in diameter with thickening and enhancement of its wall. Distally the appendix is within normal limits in size. There is mild stranding of the surrounding fat. No gross free fluid, fluid collection/ abscesses or extraluminal air are identified. A few adjacent subcentimeter mesenteric lymph nodes are present. Normal stool burden in the colon with a few diverticula in the mid sigmoid colon and without evidence of acute diverticulitis. Partially distended urinary bladder without wall thickening. Normal size prostate gland. Perirectal fat is clear. There is minimal anterolisthesis of L5 over S1 with bilateral spondylolysis of L5 pars interarticulares. The rest of the visualized bone appears unremarkable IMPRESSION: Findings consistent with mild acute appendicitis without gross extraluminal air or abscess formation. A preliminary [facility], IMAGING [employer] WORK[employer]. Reported By: Justyn Archibald MD 03/30/18 1006 HOSPITAL COURSE: 17 yr old man with no significant past medical history referred by [facility] urgent care center for wbc of 17,000 this evening. midday at school he had lunch, developed 4/10 nonpositional/nonradiating RLQ pain. He had 3-4 episodes of emesis consisting of food, abdominal pain improved after vomiting. Patient was seen in ER and CT abdomen was done. CT showed acute appendicitis. Surgery was consulted and appendectomy preformed. He was given IVF and antibiotics. Tolerated the procedure well. Tolerated advanced diet. Pain well controlled. Patient was stable and discharged home to see Dr. Sinha in one week. Date of Admission:03/30/18 Date of Discharge: 03/31/18 Minutes to complete discharge: 47 Discharge Summary Reason For Visit: ABDOMINAL PAIN ACUTE APPENDICITIS Current Active Problems Abdominal pain (Acute) Abdominal pain, acute, right lower quadrant (Acute) Acute appendicitis (Acute) Condition: Good - Instructions Diet, Activity, Other Instructions: You have been seen and treated for acute appendicitis. Diet as tolerated. Tylenol Motrin for pain . follow up in my office next at 4.30pm, 04/05/2018, at [address] [place] [address]. may shower daily, no need to cover the wound, Incentive spirometer every hour 10 times each times as able to do over the next 3-5 days. Singaporean translation: Usted gorman sido atendido y tratado por apendicitis aguda. Dieta geoff sea tolerado Tylenol Motrin para el dolor seguimiento en mi oficina el prximo jueves a las 4.30 p.m., 04/05/2018, en [address] [place] [address] [place]. puede ducharse diariamente, sin necesidad de cubrir la herida, Espirmetro de incentivo cada hora 10 veces cada vez que pueda hacerlo en los prximos 3-5 blair. Referrals: Paloma Sinha MD [Staff Physician] - 04/05/18 Disposition: HOME - Home Medications Comprehensive Discharge Medication List: Ambulatory Orders NK [No Known Home Medication] 03/30/18 Problem List - Problems (1) Acute appendicitis This patient is new to me today: Yes Date on this admission: 03/31/18 Emergency Visit: Yes ED Registration Date: 03/30/18 Care time: The patient presented to the Emergency Department on the above date and was hospitalized for further evaluation of their emergent condition. Critical Care patient: No - Discharge Referral Referred to [facility] Med P.C.: No
--- NOTE | 2018-04-04 15:11 | PATH ---
Surgical Pathology Report Patient Name: DARNELL PROCTOR [facility]. Rec. #: [id number] /Age/Gender: 2000 (Age: 17) / M Account: [id number] Location: [address] [place] [address]/[facility] Taken: 03/30/2018 Received: 04/03/2018 Reported: 04/04/2018 Physicians: Osman Barber M.D. Specimen(s) Received APPENDIX Clinical History Acute appendicitis Final Diagnosis APPENDIX, LAPAROSCOPIC APPENDECTOMY: ACUTE APPENDICITIS. Electronically Signed Connie lAlen M.D. Gross Description Received in formalin, labeled "appendix," is a 7.5 cm. in length vermiform appendix with a stapled margin of resection and moderate attached fat. The serosa is hanson-farooq and smooth. Sectioning reveals an unremarkable lumen. The wall of the appendix averages 0.1 cm. in thickness. Game Manager sections are submitted in one cassette. /04/03/2018 [facility]/04/03/2018
== END 2018-03-31 12:22 | disposition home or self-care (01) | DRG 343 ==
LOC: JER 22:10 → JERBED 03-30 02:45 → UNDOADMIN 03-30 03:27 → JERBED 03-30 03:27 → J6S 03-30 12:42
PROVIDERS: ADMIT Internal Medicine; ATTEND Hospitalist
PROC: 0DTJ4ZZ Resection of Appendix, Percutaneous Endoscopic Approach (ICD-10-PCS; principal; 2018-03-30 15:00)
DX: K35.80 Unspecified acute appendicitis (principal)
CPT/HCPCS: 36415; 74177-TC; 80053; 81003; 83605; 83690; 85025; 85610; 85730; 86850; 86900; 86901; 87070; 87075; 87205; 88304-TC; 94760; 99285-25; J7030

== ENCOUNTER 2018-11-13 22:01 | Emergency (ER) | payer OTHER, BC ==
[2018-11-13 22:24] VITALS: BP 124/58; PULSE 83; TEMP 98.2; BMI 29.2
[2018-11-14] MEDS ORDERED: TETANUS AND DIPHTHERIA TOXOID 0.5 ML DISP.SYRIN IM ONE (00:04)
--- NOTE | 2018-11-14 00:04 | PDOC ---
History of Present Illness - General Chief Complaint: Laceration Stated Complaint: HAND INJURY-WORK RELATED Time Seen by Provider: 11/13/18 23:54 History Source: Patient - History of Present Illness Initial Comments: 11/14/18 00:47 17 year old male with left 4th digit 1.5 cm laceration finger proximal to dip with no tendon injury. patient reports sensation to tyhe distal end. 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 patient also has an abrasion to left 3rd and fifth digit with no active bleeding. last teanus unknown Past History - Past Medical History Allergies/Adverse Reactions: Allergies Allergy/AdvReac Type Severity Reaction Status Date / Time pineapple Allergy Mild Hives Verified 03/30/18 03:36 Home Medications: Ambulatory Orders Cephalexin Monohydrate [Keflex -] 250 mg PO Q8H #21 capsule 11/14/18 COPD: No - Immunization History Immunization Up to Date: Yes - Suicide/Smoking/Psychosocial Hx Smoking History: Never smoked Have you smoked in the past 12 months: No Information on smoking cessation initiated: No Hx Alcohol Use: No Drug/Substance Use Hx: No *Physical Exam - Vital Signs Last Vital Signs Temp Pulse Resp BP Pulse Ox 98.2 F 83 18 124/58 L 100 11/13/18 22:20 11/13/18 22:20 11/13/18 22:20 11/13/18 22:20 11/13/18 22:20 Moderate Sedation - Procedure Monitoring Vital Signs: Procedure Monitoring Vital Signs Temperature 98.2 F 11/13/18 22:20 Pulse Rate 83 11/13/18 22:20 Respiratory Rate 18 11/13/18 22:20 Blood Pressure 124/58 L 11/13/18 22:20 O2 Sat by Pulse Oximetry (%) 100 11/13/18 22:20 Procedures - Consent Consent obtained: Verbal, From Patient - Laceration/Wound Repair Left Finger Wound Length: to 2.5 cm (1.5 cm) Wound Explored: clean Wound's Depth, Shape: superficial Anesthesia: 1% Lidocaine Wound Debrided: minimal Wound Repaired With: Sutures Suture Size/Type: 5:0 Number of Sutures: 7 Layer Closure: No Sling Applied: Yes *DC/Admit/Observation/Transfer Diagnosis at time of Disposition: Finger laceration Qualifiers: Encounter type: initial encounter Finger: ring finger Damage to nail status: without damage Foreign body presence: without foreign body Laterality: left Qualified Code(s): S61.215A - Laceration without foreign body of left ring finger without damage to nail, initial encounter - Discharge Dispostion Disposition: HOME - Prescriptions Prescriptions: Cephalexin Monohydrate [Keflex -] 250 mg PO Q8H #21 capsule - Referrals - Patient Instructions Printed Discharge Instructions: DI for Laceration Repair Additional Instructions: keep wound clean and dry. monitor for sign of infection follow up with if there are signs of infection for a wound check take cephalexin as prescribed return in 7-10 days for suture removal - Post Discharge Activity Forms/Work/School Notes: Back to Work
[2018-11-14] MEDS ORDERED: DIPHTH,PERTUSS(ACELL),TET 0.5 ML DISP.SYRIN IM ONE (00:46)
== END 2018-11-14 01:40 | disposition home or self-care (01) ==
LOC: JER 22:01
PROC: 0HQGXZZ Repair Left Hand Skin, External Approach (ICD-10-PCS; principal; 2018-11-13)
PROC: 3E0234Z Introduction of Serum, Toxoid and Vaccine into Muscle, Percutaneous Approach (ICD-10-PCS; 2018-11-13)
DX: S61.215A Laceration without foreign body of left ring finger without damage to nail, initial encounter (principal); W26.0XXA Contact with knife, initial encounter; Y93.G1 Activity, food preparation and clean up; Y92.512 Supermarket, store or market as the place of occurrence of the external cause; Y99.0 Civilian activity done for income or pay
CPT/HCPCS: 90715; 99283-25

== ENCOUNTER 2018-11-27 11:03 | Emergency (ER) | payer OTHER, BC ==
[2018-11-27 11:14] VITALS: BP 118/48; PULSE 79; TEMP 98.6; BMI 25.7
--- NOTE | 2018-11-27 11:25 | PDOC ---
Suture Removal/Wound Check HPI - History of Present Illness Chief Complaint: Suture/Staple Removal(Here) Stated Complaint: SUTURE REMOVAL Time Seen by Provider: 11/27/18 11:14 History Source: Yes: Patient Exam Limitations: Yes: No Limitations Treated at: [facility] ED - Previous ED Treatment Type of procedure performed on last visit: Yes: Laceration Repair Tetanus Immunization: Yes: Up to Date Antibiotics Prescribed: Yes Past History - Travel Traveled outside of the country in the last 30 days: No Close contact w/someone who was outside of country & ill: No - Past Medical History Allergies/Adverse Reactions: Allergies Allergy/AdvReac Type Severity Reaction Status Date / Time pineapple Allergy Mild Hives Verified 11/27/18 11:05 Home Medications: Ambulatory Orders Cephalexin Monohydrate [Keflex -] 250 mg PO Q8H #21 capsule 11/14/18 COPD: No - Immunization History Immunization Up to Date: Yes - Suicide/Smoking/Psychosocial Hx Smoking History: Never smoked Have you smoked in the past 12 months: No Information on smoking cessation initiated: No Hx Alcohol Use: No Drug/Substance Use Hx: No Suture Removal/Wound Check PE - Physical Exam Laceration/Wound Check Symptoms: reports: None Current Severity Level: None Maximum Severity Level: None Pain Localization: None *Review of Systems - Review of Systems Able to Perform ROS?: Yes Constitutional: Yes: See HPI. No: Symptoms Reported, Fever Musculoskeletal: Yes: See HPI. No: Symptoms Reported Integumentary: Yes: See HPI. No: Symptoms Reported All Other Systems: Reviewed and Negative *Physical Exam - Vital Signs Last Vital Signs Temp Pulse Resp BP Pulse Ox 98.6 F 79 15 118/48 L 98 11/27/18 11:05 11/27/18 11:05 11/27/18 11:05 11/27/18 11:05 11/27/18 11:05 - Physical Exam General Appearance: Yes: Nourished, Appropriately Dressed. No: Apparent Distress HEENT: positive: DENNY, Normal ENT Inspection Neck: positive: Supple. negative: Tender Extremity: positive: Normal Capillary Refill, Normal Inspection, Normal Range of Motion (neurovascular intact distal to injury.) Integumentary: positive: Normal Color, Dry Neurologic: positive: head baker II-XII NML intact, Fully Oriented, Alert, Normal Mood/ Affect, Normal Response, Motor Strength 5/5 Moderate Sedation - Procedure Monitoring Vital Signs: Procedure Monitoring Vital Signs Temperature 98.6 F 11/27/18 11:05 Pulse Rate 79 11/27/18 11:05 Respiratory Rate 15 11/27/18 11:05 Blood Pressure 118/48 L 11/27/18 11:05 O2 Sat by Pulse Oximetry (%) 98 11/27/18 11:05 *DC/Admit/Observation/Transfer Diagnosis at time of Disposition: Visit for suture removal - Discharge Dispostion Disposition: HOME Condition at time of disposition: Stable Decision to Admit order: No - Referrals Referrals: Angel Luis Vela MD [Primary Care Provider] - - Patient Instructions Printed Discharge Instructions: DI for Suture Removal Additional Instructions: Rest, avoid strenuous activity or exercise until scabbing is completely resolved May use bacitracin ointment until scabbing is gone After may use vitamin E oil, poke hole in vitamin E capsule and use oil from the capsule on wound- may help resolve some of the discoloration of the scar Keep wound out of the sun for at least one year to avoid darkening of scar tissue - Post Discharge Activity Forms/Work/School Notes: Back to Work
== END 2018-11-27 11:25 | disposition home or self-care (01) ==
LOC: JERFT 11:03
DX: Z48.817 Encounter for surgical aftercare following surgery on the skin and subcutaneous tissue (principal); Z48.02 Encounter for removal of sutures
CPT/HCPCS: 99281-25